=== PATIENT | female | born 1980 | race Caucasian/White ===

== ENCOUNTER 2022-04-09 12:14 | Inpatient (IN) ==
[2022-04-09] MEDS ORDERED: PROCHLORPERAZINE 1 ML IV ONE (13:05)
[2022-04-09] MEDS ORDERED: FAMOTIDINE 20MG IV PUSH 20 MG/5 ML SYR IV STA (13:05)
[2022-04-09] MEDS ORDERED: SODIUM CHLORIDE 0.9% 500 ML IV ONE (13:05)
--- NOTE | 2022-04-09 13:09 | Emergency Department Note ---
History of Present Illness General Chief complaint: Illness Stated complaint: CANNOT EAT SOLID FOODS, NAUSEA, STOMACH PAIN Time Seen by Provider: 04/09/22 12:48 Source: patient Mode of arrival: ambulatory Limitations: no limitations History of Present Illness Provider complaint: Nausea This is a 41-year-old female is currently being treated for breast cancer who complains of persistent nausea. Patient was recently hospitalized at [facility] due to pneumonia with subsequent sepsis. She states since that time she has had persistent nausea. She has been using ondansetron 8 mg twice daily at home without any improvement. She states she is able to swallow okay without pain or discomfort. She does not vomit. She states she has been trying to eat light foods such as yogurt, applesauce, and even try to drink supplements for additional calories and vitamins. She does have a prior history of GERD however was told to stop her GERD medication because it interacted with her chemo meds. She did complete her most recent cycle of chemotherapy the end of January. She states she is scheduled for surgery on February 20. She states that she has also previously had strictures need to be dilated by GI. She states both her family doctor and her oncologist are aware of her nausea. She did not contact her GI specialist. She has not yet had radiation. She states intermittently she will have some left upper quadrant pain, she does not currently have any. She denies any recent fevers or chills. Pt seen during a time of high acuity and national emergency pandemic while wearing PPE. Past Med/Surg History Social History Smoking Status: Never smoker Feels Safe at Home: Yes Review of Systems A total of 10 systems reviewed and were otherwise negative All systems reviewed & are unremarkable except as noted in HPI & below Physical Exam Vital Signs Vital Signs - 24 hr 04/09/22 12:18 04/09/22 14:30 04/09/22 14:31 Temperature 36.7 C Temperature Source Temporal Artery Scan Pulse Rate 134 H 108 H Pulse Rate [Finger] Pulse Rhythm [Finger] Pulse Strength [Finger] Respiratory Rate 20 17 Respiratory Effort / Characteristics Non-Labored Spontaneous Respiratory Depth Normal Respiratory Pattern Regular Blood Pressure 102/79 149/81 H Blood Pressure [Right Arm] Blood Pressure Mean 86 103 Blood Pressure Mean [Right Arm] Blood Pressure Position Sitting Pulse Oximetry 100 96 Oxygen Delivery Method Room Air Sepsis Recent Fever Within 48 Hours No Sepsis New/Unexplained Change in Mental Status No Sepsis Action Taken by Nursing No Action Required 04/09/22 15:33 04/09/22 17:07 04/09/22 18:16 Temperature Temperature Source Pulse Rate Pulse Rate [Finger] 122 H 120 H 122 H Pulse Rhythm [Finger] Pulse Strength [Finger] Respiratory Rate 20 18 18 Respiratory Effort / Characteristics Non-Labored Non-Labored Non-Labored Respiratory Depth Normal Normal Normal Respiratory Pattern Regular Blood Pressure Blood Pressure [Right Arm] 122/84 103/74 108/67 Blood Pressure Mean Blood Pressure Mean [Right Arm] 96 83 80 Blood Pressure Position Pulse Oximetry 97 97 98 Oxygen Delivery Method Room Air Room Air Sepsis Recent Fever Within 48 Hours Sepsis New/Unexplained Change in Mental Status Sepsis Action Taken by Nursing 04/09/22 20:00 Temperature Temperature Source Pulse Rate Pulse Rate [Finger] 84 Pulse Rhythm [Finger] Regular Pulse Strength [Finger] Normal Respiratory Rate 17 Respiratory Effort / Characteristics Non-Labored Respiratory Depth Normal Respiratory Pattern Regular Blood Pressure Blood Pressure [Right Arm] Blood Pressure Mean Blood Pressure Mean [Right Arm] Blood Pressure Position Pulse Oximetry 99 Oxygen Delivery Method Room Air Sepsis Recent Fever Within 48 Hours Sepsis New/Unexplained Change in Mental Status Sepsis Action Taken by Nursing GENERAL: alert, well appearing, well nourished, no distress, non-toxic EYE EXAM: normal conjunctiva, PERRL and EOM's grossly intact OROPHARYNX: no exudate, no erythema, lips, buccal mucosa, and tongue normal and mucous membranes are moist NECK: supple, no nuchal rigidity, no adenopathy, non-tender LUNGS: Clear to auscultation. Normal chest wall mechanics, no w/r/r HEART: no murmurs, S1 normal and S2 normal ABDOMEN: abdomen soft, non-tender, normo-active bowel sounds, no masses, no rebound or guarding. BACK: Back is symmetrical on inspection and there is no deformity, no midline tenderness, no CVA tenderness. SKIN: no rashes and no bruising UPPER EXTREMITIES: upper extremities are grossly normal. FROM, nml pulses b/l. LOWER EXTREMITIES: No pitting edema. FROM, nml pulses b/l. NEURO EXAM: Normal sensorium, cranial nerves II-XII grossly intact, normal speech, no gross weakness of arms, no gross weakness of legs. Gross sensation intact. Course Course 1619: Patient updated. States compazine did provide some relief. Discussed electrolytes. 1821: Patient still tachycardic. States nausea is slightly improved and she would like to try applesauce. She denies any pain or sense of fevers. We discussed differential diagnosis of her tachycardia. Administered Medications Discontinued Medications Enoxaparin Sodium (Enoxaparin Inj 120 Mg/0.8 Ml Syr) 120 mg SQ NOW ONE Stop: 04/09/22 21:01 Last Admin: 04/09/22 20:58 Dose: 120 mg Documented By: JEREMY Heparin Sodium (Porcine) (Heparin Sod (Porcine) 1000 Unit/Ml) 6,000 units IV NOW ONE Stop: 04/09/22 20:38 Last Admin: 04/09/22 20:43 Dose: Not Given Documented By: JEREMY Prochlorperazine (Compazine) 1 mls @ 1 mls/min IV ONE ONE Stop: 04/09/22 13:06 Last Admin: 04/09/22 14:38 Dose: 1 mls/min Documented By: CAREY Sodium Chloride (Nss) 500 mls @ 999 mls/hr IV .Q31M ONE Stop: 04/09/22 13:35 Last Infusion: 04/09/22 14:47 Dose: 0 mls/hr Documented By: Admin: 04/09/22 14:12 Dose: 999 mls/hr Documented By: CAREY Famotidine (Pepcid 20mg Iv Push) 20 mg in 5 mls @ 2.5 mls/min IV NOW STA Stop: 04/09/22 13:06 Last Admin: 04/09/22 14:38 Dose: 2.5 mls/min Documented By: CAREY Sodium Chloride (Nss 1000ml) 1,000 mls @ 999 mls/hr IV .Q1H1M ONE Stop: 04/09/22 16:39 Last Infusion: 04/09/22 17:00 Dose: 0 mls/hr Documented By: Admin: 04/09/22 15:57 Dose: 999 mls/hr Documented By: NEGIN Magnesium Sulfate/Dextrose (Magnesium Sulfate / D5w) 1 gm in 100 mls @ 100 mls/hr IV NOW STA Stop: 04/09/22 16:38 Last Infusion: 04/09/22 16:59 Dose: 0 mls/hr Documented By: Admin: 04/09/22 15:58 Dose: 100 mls/hr Documented By: NEGIN Sodium Chloride (Nss 1000ml) 1,000 mls @ 999 mls/hr IV .Q1H1M ONE Stop: 04/09/22 19:27 Last Infusion: 04/09/22 20:12 Dose: 0 mls/hr Documented By: OASola Admin: 04/09/22 19:10 Dose: 999 mls/hr Documented By: JEREMY Ioversol (Optiray 300 500ml) 112 ml IV ONCE ONE Stop: 04/09/22 19:52 Last Admin: 04/09/22 19:52 Dose: 50 ml Documented By: SANDRA Pantoprazole Sodium (Pantoprazole 40 Mg Tab) 40 mg PO NOW STA Stop: 04/09/22 20:24 Last Admin: 04/09/22 20:58 Dose: 40 mg Documented By: JEREMY Potassium Chloride (Potassium Chloride Crtab 20 Meq Tabcr) 40 meq PO NOW STA Stop: 04/09/22 15:40 Last Admin: 04/09/22 15:58 Dose: 40 meq Documented By: NEGIN Potassium Chloride (Potassium Chloride Crtab 20 Meq Tabcr) 40 meq PO NOW STA Stop: 04/09/22 20:53 Last Admin: 04/09/22 20:58 Dose: 40 meq Documented By: JEREMY Critical Care Time Critical Care Time: Yes Total Critical Care Time: 39 Critical care of 39 min performed to assess and manage high likelihood of life- threatening pulmonary embolism, involving labs and imaging performed with assessment to evaluate pulmonary embolism diagnosis with frequent reassessment. This time includes bedside time, treatment discussions with patien t/family/consultants, documentation time and excludes procedure time. Medical Decision Making Differential Diagnosis Differential: Gastroenteritis, Food Borne, Esophageal Perforation, , Electrolyte Abnormality, Dehydration, Intraabdominal Infection, UTI/Pyelonephritis, Bowel Obstruction, Biliary Pathology, amongst other pathology entertained. Medical Records Attestation: I reviewed the patient's medical records. Home Medications Current Medication List: was personally reviewed by me Laboratory Data Attestation: I reviewed the patient's lab results. Result diagrams: 04/09/22 14:42 04/09/22 14:42 Lab Results 04/09/22 04/09/22 04/09/22 Range/Units 14:42 14:42 14:42 WBC 5.59 (4.8-10.8) K/ul RBC 3.81 L (3.93-5.22) M/uL Hgb 11.7 L (12.0-16.0) g/dl Hct 34.6 (34.1-44.9) % MCV 90.8 (80.0-100.0) fL MCH 30.7 (25.0-34.0) pg MCHC 33.8 (32.0-36.0) g/dL RDW Std Deviation 44.0 (36.4-46.3) fL RDW Coeff of Phylicia 13.4 (11.5-14.5) % Plt Count 258 (130-400) K/uL MPV 9.4 (9.4-12.3) fL Immature Gran % (Auto) 0.4 % Neut % (Auto) 52.2 % Lymph % (Auto) 26.5 % [place] % (Auto) 14.3 % Eos % (Auto) 5.5 % Baso % (Auto) 1.1 % Neut # (Auto) 2.92 (1.4-6.5) K/uL Lymph # (Auto) 1.48 (1.2-3.4) K/uL [place] # (Auto) 0.80 (0.24-0.82) K/uL Eos # (Auto) 0.31 (0-0.50) K/uL Baso # (Auto) 0.06 (0-0.2) K/uL Immature Gran # (Auto) 0.02 (0.00-0.02) K/uL APTT (21.0-31.0) Seconds PTT Ratio Sodium 137 (136-145) mmol/L Potassium 2.8 L (3.5-5.1) mmol/L Chloride 102 (98-107) mmol/L Carbon Dioxide 23 (21-32) mmol/L Anion Gap 12 H (3-11) BUN 7 (6-23) mg/dl Creatinine 1.79 H (0.6-1.2) mg/dl Est Cr Clr Drug Dosing 52.7 ml/min Est GFR ( Amer) 40.7 ml/min Est GFR (Non-Af Amer) 35.1 ml/min BUN/Creatinine Ratio 3.9 L (10-20) Glucose 110 H (70-99(Fasting)) mg/dl Calcium 9.8 (8.5-10.1) mg/dl Magnesium 1.6 L (1.7-2.4) mg/dl Total Bilirubin 0.8 (0.2-1.0) mg/dl AST 103 H (13-39) U/L ALT 99 H (7-52) U/L Alkaline Phosphatase 65 (34-104) U/L Troponin I High Sens 28.5 H (0-14) pg/ml Total Protein 7.5 (6.0-8.3) gm/dl Albumin 4.2 (3.4-5.0) gm/dl Globulin 3.3 (2.5-4.0) gm/dl Albumin/Globulin Ratio 1.3 (0.9-2) Lipase 38 (11-82) U/L TSH 0.435 (0.300-4.500) uIu/ml SARS-CoV-2, RNA, NAAT (NEGATIVE) 04/09/22 04/09/22 Range/Units 20:53 21:00 WBC (4.8-10.8) K/ul RBC (3.93-5.22) M/uL Hgb (12.0-16.0) g/dl Hct (34.1-44.9) % MCV (80.0-100.0) fL MCH (25.0-34.0) pg MCHC (32.0-36.0) g/dL RDW Std Deviation (36.4-46.3) fL RDW Coeff of Phylicia (11.5-14.5) % Plt Count (130-400) K/uL MPV (9.4-12.3) fL Immature Gran % (Auto) % Neut % (Auto) % Lymph % (Auto) % [place] % (Auto) % Eos % (Auto) % Baso % (Auto) % Neut # (Auto) (1.4-6.5) K/uL Lymph # (Auto) (1.2-3.4) K/uL [place] # (Auto) (0.24-0.82) K/uL Eos # (Auto) (0-0.50) K/uL Baso # (Auto) (0-0.2) K/uL Immature Gran # (Auto) (0.00-0.02) K/uL APTT 30.6 (21.0-31.0) Seconds PTT Ratio 1.1 Sodium (136-145) mmol/L Potassium (3.5-5.1) mmol/L Chloride (98-107) mmol/L Carbon Dioxide (21-32) mmol/L Anion Gap (3-11) BUN (6-23) mg/dl Creatinine (0.6-1.2) mg/dl Est Cr Clr Drug Dosing ml/min Est GFR ( Amer) ml/min Est GFR (Non-Af Amer) ml/min BUN/Creatinine Ratio (10-20) Glucose (70-99(Fasting)) mg/dl Calcium (8.5-10.1) mg/dl Magnesium (1.7-2.4) mg/dl Total Bilirubin (0.2-1.0) mg/dl AST (13-39) U/L ALT (7-52) U/L Alkaline Phosphatase (34-104) U/L Troponin I High Sens (0-14) pg/ml Total Protein (6.0-8.3) gm/dl Albumin (3.4-5.0) gm/dl Globulin (2.5-4.0) gm/dl Albumin/Globulin Ratio (0.9-2) Lipase (11-82) U/L TSH (0.300-4.500) uIu/ml SARS-CoV-2, RNA, NAAT NEGATIVE (NEGATIVE) Imaging Data Radiologist's Impression: Abdomen/Pelvis CT 04/09/22 18:27 CT angio chest PE protocol, CT abd pelvis IV con only CT DOSE: 2383.16 mGy.cm HISTORY: 41 years-old Female with PE. Acute shortness breath with chest and abdominal pain. History of breast cancer. TECHNIQUE: Multiple CTA images of the chest were obtained after the intravenous administration of 112 ml Optiray. Coronal and sagittal MIPS were obtained from the axial data set and were submitted for review. CT abdomen and pelvis with IV contrast only was also obtained. All measurements were obtained according to NASCET criteria. A dose lowering technique was utilized adhering to the principles of ALARA. COMPARISON: None. FINDINGS: CTA: Left IJ [id number]-m-[id number] catheter distal tip terminates in the mid SVC. The heart is upper limits of normal in size. No pericardial effusion. Normal thoracic aorta without aneurysm or dissection. Suboptimal opacification of the pulmonary arterial tree. The lobar, segmental and subsegmental branches are well visualized secondary to contrast bolus timing. Likely acute pulmonary embolus noted within the segmental and subsegmental branches of the posterior basal right lower lobe, image 155. No central pulmonary emboli are identified. No evidence of right heart strain. CT CHEST: Unremarkable thyroid. No lymphadenopathy identified. No pneumothorax, pleural effusion, airspace consolidation or overt pulmonary edema. There is mild nonspecific bilateral bronchial wall thickening. There is a subpleural nodule within the right lower lobe, image 161 measuring 10 mm. The left lung is generally clear. Respiratory motion artifact in its evaluation of the lungs. The central airways are patent. Biopsied 2.4 x 2.2 cm mass within the medial right breast. Soft tissues are otherwise unremarkable. No acute fracture or destructive bone lesion identified. CT ABDOMEN/PELVIS: No pneumatosis or pneumoperitoneum. Hepatosplenomegaly with hepatic steatosis. The spleen measures approximately 15 cm in length. Unremarkable pancreas and glands. Cholecystectomy. No hepatic lesions are identified. Patency of the hepatic and portal veins. Probable cyst of the posterior inferior pole left kidney, 1.1 cm. Mild nonspec ific bilateral perinephric stranding. Moderate bladder wall thickening with partial distention. Unremarkable uterus and adnexa. Aorta and IVC are unremarkable. No lymphadenopathy identified. Mild nonspecific distal esophageal wall thickening. No bowel obstruction or bowel wall thickening. The visualized appendix is unremarkable. Tiny fat filled periumbilical hernia. No acute fracture or destructive bone lesion identified. IMPRESSION: 1. Segmental and subsegmental pulmonary emboli of the right lower lobe. 2. 2.4 x 2.2 cm biopsied mass within the medial right breast compatible with the patient's known malignancy. 3. Indeterminate 10 mm subpleural solid nodule of the right lower lobe. Follow- up is needed. 4. Hepatosplenomegaly with hepatic steatosis. 5. No bowel obstruction or bowel wall thickening. 6. Additional findings as above. ACT 112: Negative or not required by law. The above report was generated using voice recognition software. It may contain grammatical, syntax or spelling errors. Electronically signed by: Trevor Silva M.D. 04/09/2022 8:09 PM Chest CTA 04/09/22 18:27 CT angio chest PE protocol, CT abd pelvis IV con only CT DOSE: 2383.16 mGy.cm HISTORY: 41 years-old Female with PE. Acute shortness breath with chest and abdominal pain. History of breast cancer. TECHNIQUE: Multiple CTA images of the chest were obtained after the intravenous administration of 112 ml Optiray. Coronal and sagittal MIPS were obtained from the axial data set and were submitted for review. CT abdomen and pelvis with IV contrast only was also obtained. All measurements were obtained according to NASCET criteria. A dose lowering technique was utilized adhering to the principles of ALARA. COMPARISON: None. FINDINGS: CTA: Left IJ [id number] catheter distal tip terminates in the mid SVC. The heart is upper limits of normal in size. No pericardial effusion. Normal thoracic aorta without aneurysm or dissection. Suboptimal opacification of the pulmonary arterial tree. The lobar, segmental and subsegmental branches are well visualized secondary to contrast bolus timing. Likely acute pulmonary embolus noted within the segmental and subsegmental branches of the posterior basal right lower lobe, image 155. No central pulmonary emboli are identified. No evidence of right heart strain. CT CHEST: Unremarkable thyroid. No lymphadenopathy identified. No pneumothorax, pleural effusion, airspace consolidation or overt pulmonary edema. There is mild nonspecific bilateral bronchial wall thickening. There is a subpleural nodule within the right lower lobe, image 161 measuring 10 mm. The left lung is generally clear. Respiratory motion artifact in its evaluation of the lungs. The central airways are patent. Biopsied 2.4 x 2.2 cm mass within the medial right breast. Soft tissues are otherwise unremarkable. No acute fracture or destructive bone lesion identified. CT ABDOMEN/PELVIS: No pneumatosis or pneumoperitoneum. Hepatosplenomegaly with hepatic steatosis. The spleen measures approximately 15 cm in length. Unremarkable pancreas and glands. Cholecystectomy. No hepatic lesions are identified. Patency of the hepatic and portal veins. Probable cyst of the posterior inferior pole left kidney, 1.1 cm. Mild nonspecif ic bilateral perinephric stranding. Moderate bladder wall thickening with partial distention. Unremarkable uterus and adnexa. Aorta and IVC are unremarkable. No lymphadenopathy identified. Mild nonspecific distal esophageal wall thickening. No bowel obstruction or bowel wall thickening. The visualized appendix is unremarkable. Tiny fat filled periumbilical hernia. No acute fracture or destructive bone lesion identified. IMPRESSION: 1. Segmental and subsegmental pulmonary emboli of the right lower lobe. 2. 2.4 x 2.2 cm biopsied mass within the medial right breast compatible with the patient's known malignancy. 3. Indeterminate 10 mm subpleural solid nodule of the right lower lobe. Follow- up is needed. 4. Hepatosplenomegaly with hepatic steatosis. 5. No bowel obstruction or bowel wall thickening. 6. Additional findings as above. ACT 112: Negative or not required by law. The above report was generated using voice recognition software. It may contain grammatical, syntax or spelling errors. Electronically signed by: Trevor Silva M.D. 04/09/2022 8:09 PM ECG Data Attestation: I personally reviewed and interpreted this ECG as follows: Indication: + nausea Rate (beats per minute): 114 Rhythm: + sinus tachycardia ECG Intervals/blocks: + Normal QRS and + Normal QT ECG [place]: + Normal ECG ST segments: + Nonspecific ST abnormalities MDM Narrative An order was placed for continuous cardiac monitoring. The monitor shows a rate of _113_ with _sinsus tachycardia__ rhythm. This is a 41-year-old female presents emerged department due to concern for persistent nausea despite using ondansetron at home per her oncologist recommendation. Patient does have history of breast cancer and finished chemotherapy the end of January, is scheduled for surgery on April 22. Patient complains of persistent nausea. Labs drawn and sent, and after discussion at bedside we opted to try Compazine with the patient. She was given IV fluid rehydration due to concern for accompanying dehydration due to decreased oral intake and patient was tachycardic. Patient denied chest pain or shortness of breath. Denied fevers or abdominal pain. Patient found to have hypokalemia and hypomagnesemia, likely second to decreased oral intake. No evidence of SAM, mild elevation of transaminases noted, mild elevation of troponin. Patient's electrolytes were repleted and she continued to be hydrated however continued to feel tachycardic. She stated the nausea was improved and she was tolerating sips by mouth. Due to concern for persistent tachycardia, I discussed with her additional imaging. CT of the chest, abdomen and pelvis was also performed and revealed segmental and subsegmental PEs. Patient high risk for complication due to history of known malignancy and persistent tachycardia. No evidence for right heart strain on CT although patient did have a mildly elevated troponin and labs. Case discussed with hospitalist for additional evaluation and management. Patient started on weight-based Lovenox. All results were discussed with patient and family at bedside. She verbalized understanding was in agreement with plan. Impression & Plan Tachycardia, Pulmonary embolism, Nausea, Esophagitis, Hypokalemia, Breast cancer, Hypomagnesemia Discharge Plan Visit Data Chief Complaint: Illness Stated Complaint: CANNOT EAT SOLID FOODS, NAUSEA, STOMACH PAIN ED Provider: Shyanne Keller Discharge Problem: Tachycardia, Pulmonary embolism, Nausea, Esophagitis, Hypokalemia, Breast cancer, Hypomagnesemia Forms Stand Alone Forms: [facility] Referrals Referrals: PCP,NO [Physician] -
[2022-04-09 15:14] LABS: Albumin Globulin Ratio 1.3 (0.9-2); Albumin Level 4.2 gm/dl (3.4-5.0); BUN Creatinine Ratio 3.9 (10-20); Basophils # (auto) 0.06 K/uL (0-0.2); Basophils % (auto) 1.1 %; Bilirubin,Total 0.8 mg/dl (0.2-1.0); Calcium 9.8 mg/dl (8.5-10.1); Creatinine Clr Calc Pharmacy 52.7 ml/min; Eosinophils # (auto) 0.31 K/uL (0-0.50); Eosinophils % (auto) 5.5 %; Est GFR (African American) 40.7 ml/min; Est GFR (Non-African American) 35.1 ml/min; Globulin 3.3 gm/dl (2.5-4.0); Hematocrit (blood only) 34.6 % (34.1-44.9); Hemoglobin 11.7 g/dl (12.0-16.0); Immature Granulocytes # (auto) 0.02 K/uL (0.00-0.02); Immature Granulocytes % (auto) 0.4 %; Lymphocytes # (auto) 1.48 K/uL (1.2-3.4); Lymphocytes % (auto) 26.5 %; Magnesium 1.6 mg/dl (1.7-2.4); Mean Corpuscular Hemoglobin 30.7 pg (25.0-34.0); Mean Corpuscular Hgb Conc 33.8 g/dL (32.0-36.0); Mean Corpuscular Volume 90.8 fL (80.0-100.0); Mean Platelet Volume 9.4 fL (9.4-12.3); Monocytes % (auto) 14.3 %; Neutrophils # (auto) 2.92 K/uL (1.4-6.5); Neutrophils % (auto) 52.2 %; Platelet Count 258 K/uL (130-400); Potassium 2.8 mmol/L (3.5-5.1); RDW Coefficient of Variation 13.4 % (11.5-14.5); Red Blood Count 3.81 M/uL (3.93-5.22); Total Protein 7.5 gm/dl (6.0-8.3); White Blood Count 5.59 K/ul (4.8-10.8)
[2022-04-09 15:17] LABS: Troponin I High Sensitivity 28.5 pg/ml (0-14)
[2022-04-09] MEDS ORDERED: SODIUM CHLORIDE 0.9% 1000ML 1,000 ML IV ONE ×2 (15:39→18:27)
[2022-04-09] MEDS ORDERED: MAGNESIUM SULFATE / D5W 1 GM/100 ML BAG IV STA (15:39)
[2022-04-09] MEDS ORDERED: POTASSIUM CHLORIDE CRTAB 20 MEQ TABCR PO STA ×2 (15:39→20:52)
--- NOTE | 2022-04-09 16:09 | Electrocardiogram Report ---
Test Reason : Blood Pressure : / mmHG Vent. Rate : 114 BPM Atrial Rate : 114 BPM P-R Int : 142 ms QRS Dur : 084 ms QT Int : 352 ms P-R-T Axes : 064 056 054 degrees QTc Int : 485 ms Sinus tachycardia Left atrial enlargement Nonspecific T wave abnormality Anterior leads Abnormal ECG No previous ECGs available Confirmed by Damien Hall ([id number]) on 04/09/2022 4:09:16 PM Referred By: REFERRED SELF Confirmed By:Damien Hall
[2022-04-09] MEDS ORDERED: OPTIRAY 300 500mL IV ONE (19:51)
--- NOTE | 2022-04-09 20:11 | CT Scan Report ---
CT angio chest PE protocol, CT abd pelvis IV con only CT DOSE: 2383.16 mGy.cm HISTORY: 41 years-old Female with PE. Acute shortness breath with chest and abdominal pain. History of breast cancer. TECHNIQUE: Multiple CTA images of the chest were obtained after the intravenous administration of 112 ml Optiray. Coronal and sagittal MIPS were obtained from the axial data set and were submitted for review. CT abdomen and pelvis with IV contrast only was also obtained. All measurements were obtained according to NASCET criteria. A dose lowering technique was utilized adhering to the principles of A TAMIKO. COMPARISON: None. FINDINGS: CTA: Left IJ Klczbl-a-[id number] catheter distal tip terminates in the mid SVC. The heart is upper limits of nor mal in size. No pericardial effusion. Normal thoracic aorta without aneurysm or dissection. Suboptima l opacification of the pulmonary arterial tree. The lobar, segmental and subsegmental branches are we ll visualized secondary to contrast bolus timing. Likely acute pulmonary embolus noted within the seg mental and subsegmental branches of the posterior basal right lower lobe, image 155. No central pulmo nary emboli are identified. No evidence of right heart strain. CT CHEST: Unremarkable thyroid. No lymphadenopathy identified. No pneumothorax, pleural effusion, airspace cons olidation or overt pulmonary edema. There is mild nonspecific bilateral bronchial wall thickening. Th ere is a subpleural nodule within the right lower lobe, image 161 measuring 10 mm. The left lung is g enerally clear. Respiratory motion artifact in its evaluation of the lungs. The central airways are p atent. Biopsied 2.4 x 2.2 cm mass within the medial right breast. Soft tissues are otherwise unremark able. No acute fracture or destructive bone lesion identified. CT ABDOMEN/PELVIS: No pneumatosis or pneumoperitoneum. Hepatosplenomegaly with hepatic steatosis. The spleen measures ap proximately 15 cm in length. Unremarkable pancreas and glands. Cholecystectomy. No hepatic lesions ar e identified. Patency of the hepatic and portal veins. Probable cyst of the posterior inferior pole left kidney, 1.1 cm. Mild nonspecific bilateral perineph joana stranding. Moderate bladder wall thickening with partial distention. Unremarkable uterus and adne xa. Aorta and IVC are unremarkable. No lymphadenopathy identified. Mild nonspecific distal esophageal wall thickening. No bowel obstruction or bowel wall thickening. The visualized appendix is unremarka ble. Tiny fat filled periumbilical hernia. No acute fracture or destructive bone lesion identified. IMPRESSION: 1. Segmental and subsegmental pulmonary emboli of the right lower lobe. 2. 2.4 x 2.2 cm biopsied mass within the medial right breast compatible with the patient's known lidya gnancy. 3. Indeterminate 10 mm subpleural solid nodule of the right lower lobe. Follow-up is needed. 4. Hepatosplenomegaly with hepatic steatosis. 5. No bowel obstruction or bowel wall thickening. 6. Additional findings as above. ACT 112: Negative or not required by law. The above report was generated using voice recognition software. It may contain grammatical, syntax o r spelling errors. Electronically signed by: Trevor Silva M.D. 04/09/2022 8:09 PM
[2022-04-09] MEDS ORDERED: Heparin IV Adult Wt-Based Standard WITH Bolus Protocol IV STA (20:22)
[2022-04-09] MEDS ORDERED: PANTOprazole 40 MG TAB PO STA (20:23)
[2022-04-09] MEDS ORDERED: HEPARIN SOD (PORCINE) 1000 UNIT/ML IV ONE ×2 (20:37)
[2022-04-09] MEDS ORDERED: ENOXAPARIN 1 MG/KG SC ONE (20:41)
[2022-04-09] MEDS ORDERED: HEPARIN SODIUM/DEXTROSE 25,000 UNITS/500 ML BAG IV SCH (20:45)
[2022-04-09] MEDS ORDERED: ENOXAPARIN INJ 120 MG/0.8 ML SYR SQ ONE (21:00)
[2022-04-09 21:26] LABS: Partial Thromboplastin Ratio 1.1; Partial Thromboplastin Time 30.6 Seconds (21.0-31.0)
--- NOTE | 2022-04-09 21:42 | History & Physical Report ---
Date of Service April 09, 2022 Assessment & Plan (1) Pulmonary embolism: Plan: hx right breast cancer status post neoadjuvant chemotherapy/immunotherapy Initial occurrence Rule out LE DVT as source. 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 intake ? Secondary to possible gastroparesis past tobacco abuse Medical telemetry Weight-based Lovenox Request AM provider to contact patient's oncologist Dr. Nolan Gonzalez of the [facility] (contact #[phone]) for recommendations regarding home anticoagulation agent in light of patient's cancer history. LE venous Dopplers rule out DVT Replace electrolytes Outpatient GI consult for possible gastroparesis DVT prophylaxis. Lovenox Full code Text document was generated using [employer] voice recognition software. It may contain grammatical or spelling errors. Kindly contact undersigned for clarification of any documentation item in question. History of Present Illness Chief Complaint: Worsening nausea, vomiting Primary Care Provider: Rodríguez Hubbard, History obtained from patient, family, and records. Medical history significant for right breast cancer status post neoadjuvant chemotherapy/immunotherapy, pituitary insufficiency as per patient, hypothyroidism, chronic anemia (baseline hemoglobin of 11), CRI (baseline creatinine of 2 as per patient), past tobacco abuse. Patient diagnosed to have right breast cancer July 2021. Neoadjuvant chemotherapy/immunotherapy initiated September 2021. Last dose administered December 2021. Surgery contemplated next month. 2 months ago, patient noted nausea symptoms without unusual abdominal pain. Involuntary 20 pound weight loss the last couple of months. Patient prescribed antiemetics by outpatient providers. Patient admitted at [facility] last month for sepsis, renal failure necessitating temporary dialysis. At home, patient still with persistent nausea symptoms without unusual abdominal pain. No bowel movement. No chest pain, no unusual shortness of breath. No unusual leg swelling. Patient brought to the ER by for worsening symptoms. Weight-based Lovenox administered at the ER for pulmonary embolism. Medical History as above Surgical History : section, a port placement, cholecystectomy Family History : Breast cancer Personal/Social history : Past tobacco abuse, occasional EtOH intake, healthcare schedule coordinator Allergies Allergy/AdvReac Type Severity Reaction Status Date / Time carboplatin Allergy Severe Difficulty Verified 04/10/22 00:03 Breathing cefaclor [From Ceclor] Allergy Hives Verified 04/10/22 00:03 -Platin Family Allergy Severe Difficulty Uncoded 04/10/22 00:04 Breathing Home Medications Medication Instructions Recorded Confirmed Type hydrocortisone 10 mg tablet 10 mg PO UD 04/10/22 04/10/22 History levothyroxine 25 mcg tablet 50 mcg PO DAILY 04/10/22 04/10/22 History metoclopramide HCl 10 mg tablet 10 mg PO TIDWMEAL 04/10/22 04/10/22 History ondansetron HCl 4 mg tablet mg 04/10/22 History ondansetron HCl 8 mg tablet 8 mg PO BIDWMEAL 04/10/22 04/10/22 History tramadol 50 mg tablet 50 mg PO Q4H PRN Pain 04/10/22 04/10/22 History Past Med/Surg History Social History Smoking Status: Former smoker Cigarettes Per Day: 0.5 pks/day; Smoking End Date: December-January 2022; Second Hand Exposure: No; Tobacco Cessation Education Requested by Patient: No Hx Alcohol Use: No Hx Substance Use: No Preferred Language: Occitan Communication Ability: Effective Charge Operator Required: No Beliefs That Will Affect Care: None marital status: Current Living Situation: Significant Other Current Living Situation Comment: Live with significant other and 3 daughters How many Children do You have: 3 Other Information That Helps Us Care for You: No Feels Safe at Home: Yes Safety Concerns: Feels Safe At This Time Assistive Devices: None Review of Systems Review of Systems: As per HPI, all other systems reviewed and negative Physical Exam Physical Exam: GENERAL: Comfortable, morbidly obese, pleasant, no respiratory distress SKIN: Pallor, warm HEENT: Pale palpebral conjunctivae, no ptosis, dry buccal mucosa NECK : Supple, short neck, no tenderness CHEST : CTA, no tenderness HEART : Tachycardic, no obvious murmurs ABDOMEN: Some distention, nontender EXTREMITIES : Minimal LE swelling, no LE tenderness, no other conspicuous deformities noted NEUROLOGIC : Coherent, no facial asymmetry, no other gross focality Results & Data Results & Data ([facility]) Vital Signs (Past 12 Hours) Vital Signs Temp Pulse Pulse Resp BP BP Pulse Ox 04/09/22 20:00 84 17 99 04/09/22 18:16 122 H 18 108/67 98 04/09/22 17:07 120 H 18 103/74 97 04/09/22 15:33 122 H 20 122/84 97 04/09/22 14:31 108 H 17 96 04/09/22 14:30 149/81 H 04/09/22 12:18 36.7 C 134 H 20 102/79 100 O2 Del Method 04/09/22 20:00 Room Air 04/09/22 18:16 Room Air 04/09/22 17:07 Room Air 04/09/22 15:33 04/09/22 14:31 04/09/22 14:30 04/09/22 12:18 Room Air Laboratory Results Laboratory Results WBC 5.59 K/ul (4.8-10.8) 04/09/22 14:42 RBC 3.81 M/uL (3.93-5.22) L 04/09/22 14:42 Hgb 11.7 g/dl (12.0-16.0) L 04/09/22 14:42 Hct 34.6 % (34.1-44.9) 04/09/22 14:42 MCV 90.8 fL (80.0-100.0) 04/09/22 14:42 MCH 30.7 pg (25.0-34.0) 04/09/22 14:42 MCHC 33.8 g/dL (32.0-36.0) 04/09/22 14:42 RDW Std Deviation 44.0 fL (36.4-46.3) 04/09/22 14:42 RDW Coeff of Phylicia 13.4 % (11.5-14.5) 04/09/22 14:42 Plt Count 258 K/uL (130-400) 04/09/22 14:42 MPV 9.4 fL (9.4-12.3) 04/09/22 14:42 Immature Gran % (Auto) 0.4 % 04/09/22 14:42 Neut % (Auto) 52.2 % 04/09/22 14:42 Lymph % (Auto) 26.5 % 04/09/22 14:42 Chester % (Auto) 14.3 % 04/09/22 14:42 Eos % (Auto) 5.5 % 04/09/22 14:42 Baso % (Auto) 1.1 % 04/09/22 14:42 Neut # (Auto) 2.92 K/uL (1.4-6.5) 04/09/22 14:42 Lymph # (Auto) 1.48 K/uL (1.2-3.4) 04/09/22 14:42 Chester # (Auto) 0.80 K/uL (0.24-0.82) 04/09/22 14:42 Eos # (Auto) 0.31 K/uL (0-0.50) 04/09/22 14:42 Baso # (Auto) 0.06 K/uL (0-0.2) 04/09/22 14:42 Immature Gran # (Auto) 0.02 K/uL (0.00-0.02) 04/09/22 14:42 APTT 30.6 Seconds (21.0-31.0) 04/09/22 20:53 PTT Ratio 1.1 04/09/22 20:53 Sodium 137 mmol/L (136-145) 04/09/22 14:42 Potassium 2.8 mmol/L (3.5-5.1) L 04/09/22 14:42 Chloride 102 mmol/L (98-107) 04/09/22 14:42 Carbon Dioxide 23 mmol/L (21-32) 04/09/22 14:42 Anion Gap 12 (3-11) H 04/09/22 14:42 BUN 7 mg/dl (6-23) 04/09/22 14:42 Creatinine 1.79 mg/dl (0.6-1.2) H 04/09/22 14:42 Est Cr Clr Drug Dosing 52.7 ml/min 04/09/22 14:42 Est GFR ( Amer) 40.7 ml/min 04/09/22 14:42 Est GFR (Non-Af Amer) 35.1 ml/min 04/09/22 14:42 BUN/Creatinine Ratio 3.9 (10-20) L 04/09/22 14:42 Glucose 110 mg/dl (70-99(Fasting)) H 04/09/22 14:42 Calcium 9.8 mg/dl (8.5-10.1) 04/09/22 14:42 Magnesium 1.6 mg/dl (1.7-2.4) L 04/09/22 14:42 Total Bilirubin 0.8 mg/dl (0.2-1.0) 04/09/22 14:42 AST 103 U/L (13-39) H 04/09/22 14:42 ALT 99 U/L (7-52) H 04/09/22 14:42 Alkaline Phosphatase 65 U/L (34-104) 04/09/22 14:42 Troponin I High Sens 28.5 pg/ml (0-14) H 04/09/22 14:42 Total Protein 7.5 gm/dl (6.0-8.3) 04/09/22 14:42 Albumin 4.2 gm/dl (3.4-5.0) 04/09/22 14:42 Globulin 3.3 gm/dl (2.5-4.0) 04/09/22 14:42 Albumin/Globulin Ratio 1.3 (0.9-2) 04/09/22 14:42 Lipase 38 U/L (11-82) 04/09/22 14:42 TSH 0.435 uIu/ml (0.300-4.500) 04/09/22 14:42 SARS-CoV-2, RNA, NAAT NEGATIVE (NEGATIVE) 04/09/22 21:00 Impressions Abdomen/Pelvis CT 04/09/22 18:27 CT angio chest PE protocol, CT abd pelvis IV con only CT DOSE: 2383.16 mGy.cm HISTORY: 41 years-old Female with PE. Acute shortness breath with chest and abdominal pain. History of breast cancer. TECHNIQUE: Multiple CTA images of the chest were obtained after the intravenous administration of 112 ml Optiray. Coronal and sagittal MIPS were obtained from the axial data set and were submitted for review. CT abdomen and pelvis with IV contrast only was also obtained. All measurements were obtained according to NASCET criteria. A dose lowering technique was utilized adhering to the principles of ALARA. COMPARISON: None. FINDINGS: CTA: Left IJ Xwetkk-b-Usmn catheter distal tip terminates in the mid SVC. The heart is upper limits of normal in size. No pericardial effusion. Normal thoracic aorta without aneurysm or dissection. Suboptimal opacification of the pulmonary arterial tree. The lobar, segmental and subsegmental branches are well visualized secondary to contrast bolus timing. Likely acute pulmonary embolus noted within the segmental and subsegmental branches of the posterior basal right lower lobe, image 155. No central pulmonary emboli are identified. No evidence of right heart strain. CT CHEST: Unremarkable thyroid. No lymphadenopathy identified. No pneumothorax, pleural effusion, airspace consolidation or overt pulmonary edema. There is mild nonspecific bilateral bronchial wall thickening. There is a subpleural nodule within the right lower lobe, image 161 measuring 10 mm. The left lung is generally clear. Respiratory motion artifact in its evaluation of the lungs. The central airways are patent. Biopsied 2.4 x 2.2 cm mass within the medial right breast. Soft tissues are otherwise unremarkable. No acute fracture or destructive bone lesion identified. CT ABDOMEN/PELVIS: No pneumatosis or pneumoperitoneum. Hepatosplenomegaly with hepatic steatosis. The spleen measures approximately 15 cm in length. Unremarkable pancreas and glands. Cholecystectomy. No hepatic lesions are identified. Patency of the hepatic and portal veins. Probable cyst of the posterior inferior pole left kidney, 1.1 cm. Mild nonspecific bilateral perinephric stranding. Moderate bladder wall thickening with partial distention. Unremarkable uterus and adnexa. Aorta and IVC are unremarkable. No lymphadenopathy identified. Mild nonspecific distal esophageal wall thickening. No bowel obstruction or bowel wall thickening. The visualized appendix is unremarkable. Tiny fat filled periumbilical hernia. No acute fracture or destructive bone lesion identified. IMPRESSION: 1. Segmental and subsegmental pulmonary emboli of the right lower lobe. 2. 2.4 x 2.2 cm biopsied mass within the medial right breast compatible with the patient's known malignancy. 3. Indeterminate 10 mm subpleural solid nodule of the right lower lobe. Follow- up is needed. 4. Hepatosplenomegaly with hepatic steatosis. 5. No bowel obstruction or bowel wall thickening. 6. Additional findings as above. ACT 112: Negative or not required by law. The above report was generated using voice recognition software. It may contain grammatical, syntax or spelling errors. Electronically signed by: Trevor Sivla M.D. 04/09/2022 8:09 PM Chest CTA 04/09/22 18:27 CT angio chest PE protocol, CT abd pelvis IV con only CT DOSE: 2383.16 mGy.cm HISTORY: 41 years-old Female with PE. Acute shortness breath with chest and abdominal pain. History of breast cancer. TECHNIQUE: Multiple CTA images of the chest were obtained after the intravenous administration of 112 ml Optiray. Coronal and sagittal MIPS were obtained from the axial data set and were submitted for review. CT abdomen and pelvis with IV contrast only was also obtained. All measurements were obtained according to NASCET criteria. A dose lowering technique was utilized adhering to the principles of ALARA. COMPARISON: None. FINDINGS: CTA: Left IJ Grdlrd-o-Kehi catheter distal tip terminates in the mid SVC. The heart is upper limits of normal in size. No pericardial effusion. Normal thoracic aorta without aneurysm or dissection. Suboptimal opacification of the pulmonary arterial tree. The lobar, segmental and subsegmental branches are well visualized secondary to contrast bolus timing. Likely acute pulmonary embolus noted within the segmental and subsegmental branches of the posterior basal right lower lobe, image 155. No central pulmonary emboli are identified. No evidence of right heart strain. CT CHEST: Unremarkable thyroid. No lymphadenopathy identified. No pneumothorax, pleural effusion, airspace consolidation or overt pulmonary edema. There is mild nonspecific bilateral bronchial wall thickening. There is a subpleural nodule within the right lower lobe, image 161 measuring 10 mm. The left lung is generally clear. Respiratory motion artifact in its evaluation of the lungs. The central airways are patent. Biopsied 2.4 x 2.2 cm mass within the medial right breast. Soft tissues are otherwise unremarkable. No acute fracture or destructive bone lesion identified. CT ABDOMEN/PELVIS: No pneumatosis or pneumoperitoneum. Hepatosplenomegaly with hepatic steatosis. The spleen measures approximately 15 cm in length. Unremarkable pancreas and glands. Cholecystectomy. No hepatic lesions are identified. Patency of the hepatic and portal veins. Probable cyst of the posterior inferior pole left kidney, 1.1 cm. Mild nonspecific bilateral perinephric stranding. Moderate bladder wall thickening with partial distention. Unremarkable uterus and adnexa. Aorta and IVC are unremarkable. No lymphadenopathy identified. Mild nonspecific distal esophageal wall thickening. No bowel obstruction or bowel wall thickening. The visualized appendix is unremarkable. Tiny fat filled periumbilical hernia. No acute fracture or destructive bone lesion identified. IMPRESSION: 1. Segmental and subsegmental pulmonary emboli of the right lower lobe. 2. 2.4 x 2.2 cm biopsied mass within the medial right breast compatible with the patient's known malignancy. 3. Indeterminate 10 mm subpleural solid nodule of the right lower lobe. Follow- up is needed. 4. Hepatosplenomegaly with hepatic steatosis. 5. No bowel obstruction or bowel wall thickening. 6. Additional findings as above. ACT 112: Negative or not required by law. The above report was generated using voice recognition software. It may contain grammatical, syntax or spelling errors. Electronically signed by: Trevor Silva M.D. 04/09/2022 8:09 PM Diagnostic Findings EKG as per my interpretation :Rate 115, sinus tachycardia, normal axis, T wave abnormalities septal leads
[2022-04-09] MEDS ORDERED: traMADol HCL 50 MG TABLET PO PRN (23:11)
[2022-04-09] MEDS ORDERED: PROMETHAZINE HCL 12.5 MG in SODIUM CHLORIDE 0.9% 50 ML IV PRN (23:11)
[2022-04-09] MEDS ORDERED: ACETAMINOPHEN 325 MG TAB PO PRN (23:11)
[2022-04-09] MEDS ORDERED: Patient's ALLERGY Info needs ENTERED STA (23:16)
[2022-04-10] MEDS ORDERED: MAGNESIUM SULFATE / D5W 1 GM/100 ML BAG IV ONE (00:52)
[2022-04-10] MEDS ORDERED: POTASSIUM CHLORIDE CRTAB 20 MEQ TABCR PO STA (00:52)
[2022-04-10] MEDS ORDERED: LACTATED RINGER'S 1,000 ML IV ONE (00:53)
[2022-04-10] MEDS: LEVOTHYROXINE SODIUM 50 MCG TABLET PO SCH (05:30)
[2022-04-10 06:42] LABS: Basophils # (auto) 0.06 K/uL (0-0.2); Basophils % (auto) 1.2 %; Eosinophils # (auto) 0.24 K/uL (0-0.50); Eosinophils % (auto) 4.9 %; Hematocrit (blood only) 32.6 % (34.1-44.9); Hemoglobin 10.8 g/dl (12.0-16.0); Immature Granulocytes # (auto) 0.01 K/uL (0.00-0.02); Immature Granulocytes % (auto) 0.2 %; Lymphocytes % (auto) 30.6 %; Mean Corpuscular Hemoglobin 30.5 pg (25.0-34.0); Mean Corpuscular Hgb Conc 33.1 g/dL (32.0-36.0); Mean Corpuscular Volume 92.1 fL (80.0-100.0); Mean Platelet Volume 9.3 fL (9.4-12.3); Monocytes # (auto) 0.74 K/uL (0.24-0.82); Monocytes % (auto) 15.1 %; Neutrophils # (auto) 2.35 K/uL (1.4-6.5); Platelet Count 229 K/uL (130-400); RDW Coefficient of Variation 13.4 % (11.5-14.5); RDW Standard Deviation 44.9 fL (36.4-46.3); Red Blood Count 3.54 M/uL (3.93-5.22)
[2022-04-10 07:03] LABS: BUN Creatinine Ratio 3.2 (10-20); Calcium 9.3 mg/dl (8.5-10.1); Creatinine Clr Calc Pharmacy 61.4 ml/min; Est GFR (Non-African American) 41.4 ml/min; Magnesium 2.3 mg/dl (1.7-2.4); Potassium 3.9 mmol/L (3.5-5.1)
--- NOTE | 2022-04-10 07:19 | Ultrasound Report ---
BILATERAL LOWER EXTREMITY VENOUS DOPPLER HISTORY: History of malignancy. Pulmonary emboli. Assess for DVT. COMPARISON STUDY: None. FINDINGS: There is normal compressibility, flow, and augmentation within the bilateral lower extremit y deep venous systems. IMPRESSION: No DVT within the right or left lower extremity. ACT 112: Negative or not required by law. Electronically signed by: rEik Yost M.D. 04/10/2022 7:18 AM
[2022-04-10] MEDS ORDERED: traMADol HCL 50 MG TABLET PO PRN (07:25)
[2022-04-10 07:35] LABS: Estimated Average Glucose 111 mg/dl; Hemoglobin A1C 5.5 % (4.5-5.6)
[2022-04-10] MEDS: ENOXAPARIN INJ 120 MG/0.8 ML SYR SQ SCH ×2 (08:46→20:07)
[2022-04-10] MEDS: METOCLOPRAMIDE HCL 10 MG TABLET PO SCH ×3 (08:46→16:35)
[2022-04-10] MEDS: HYDROCORTISONE 10 MG TAB PO SCH (08:46)
--- NOTE | 2022-04-10 15:19 | Hospitalist Progress Note ---
Date of Service April 10, 2022 Assessment & Plan (1) Pulmonary embolism: Plan: Acute Pulmonary Embolism Right lower lobe nodule H/O Right breast cancer H/O recent hospitalization --CTA: Segmental and subsegmental pulmonary emboli of the right lower lobe. 2.4 x 2.2 cm biopsied mass within the medial right breast compatible with the patient's known malignancy. Indeterminate 10 mm subpleural solid nodule of the right lower lobe. Hepatosplenomegaly with hepatic steatosis. No bowel obstruction or bowel wall thickening. --Venous Doppler:No DVT within the right or left lower extremity. --ECHO: EF 50 to 55%. Trace tricuspid regurgitation. Right ventricle is normal. Right ventricle systolic pressure is normal. --Discussed with Bia HARDING for Dr.Mark Gonzalez of the [facility] on 04/10/22: Suggests Eliquis for anticoagulation. 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 Normal cortisol levels Continue hydrocortisone Hypothyroidism Normal TSH Continue levothyroxine Chronic anemia Hb at baseline Monitor CKD II Cr at baseline Monitor renal function Hypokalemia Hypomagnesemia secondary Replace electrolytes as needed Past tobacco abuse As per records Morbid obesity BMI 47 Suspected gastroparesis Continue Reglan GI as outpatient Advance diet as tolerated DVT Px: Lovenox SQ Code Status Full code Admission and Anticipated Discharge Date Admission Date: April 09, 2022 Subjective Patient is seen and examined at bedside Nausea much better today States feeling tired Denies any dyspnea, palpitations, chest pain Discussed with patient's oncologist over the phone today Offers no other complaints Review of Systems Review of Systems: All systems reviewed & are unremarkable except as noted in Subjective Physical Exam Physical Exam: Physical Exam: Vitals signs as noted above General Appearance:Morbidly Obese, no apparent distress Head: normocephalic, Atraumatic Eyes: normal inspection, EOMI Neck: supple, Trachea midline Respiratory/Chest: Normal breath sounds, +Port, CTA, No accessory muscle use Cardiovascular: S1, S2, No murmur, +Tachycardia Abdomen/GI:Soft, Non tender, Bowel sounds present Extremities/Musculoskeletal:normal inspection, Trace edema Neurologic/Psych:AAOX3, grossly no focal neurological deficits Skin: normal color, warm Results & Data Results & Data ([facility]) Vital Signs (Past 12 Hours) Vital Signs Temp Pulse Pulse Resp BP Pulse Ox O2 Del Method 04/10/22 11:34 37.4 C 113 H 18 129/75 99 Room Air 04/10/22 08:00 36.9 C 104 H 18 126/79 100 Room Air 04/10/22 07:14 106 H 04/10/22 03:22 36.9 C 104 H 20 95/62 L 98 Room Air Laboratory Results Short CBC 04/10/22 Range/Units 05:48 WBC 4.90 (4.8-10.8) K/ul Hgb 10.8 L (12.0-16.0) g/dl Hct 32.6 L (34.1-44.9) % Plt Count 229 (130-400) K/uL BMP 04/10/22 05:48 Sodium 139 Potassium 3.9 D Chloride 109 H Carbon Dioxide 22 BUN 5 L Creatinine 1.56 H Glucose 89 Calcium 9.3
[2022-04-10] MEDS ORDERED: HYDROCORTISONE 10 MG TAB PO SCH (16:00)
[2022-04-11] MEDS: HEPARIN 100 UNIT/ML 5ML FLUSH FLUSH PRN ×2 (03:06→11:39)
[2022-04-11] MEDS: LEVOTHYROXINE SODIUM 50 MCG TABLET PO SCH (05:32)
[2022-04-11 07:40] LABS: Hematocrit (blood only) 30.6 % (34.1-44.9); Hemoglobin 10.2 g/dl (12.0-16.0); Mean Corpuscular Hemoglobin 30.5 pg (25.0-34.0); Mean Corpuscular Hgb Conc 33.3 g/dL (32.0-36.0); Mean Corpuscular Volume 91.6 fL (80.0-100.0); Mean Platelet Volume 10.3 fL (9.4-12.3); Platelet Count 207 K/uL (130-400); RDW Coefficient of Variation 13.4 % (11.5-14.5); RDW Standard Deviation 44.5 fL (36.4-46.3); Red Blood Count 3.34 M/uL (3.93-5.22); White Blood Count 4.33 K/ul (4.8-10.8)
[2022-04-11 08:05] LABS: BUN Creatinine Ratio 3.6 (10-20); Calcium 9.5 mg/dl (8.5-10.1); Creatinine Clr Calc Pharmacy 69.4 ml/min; Est GFR (African American) 55.7 ml/min; Magnesium 1.9 mg/dl (1.7-2.4); Potassium 3.6 mmol/L (3.5-5.1)
[2022-04-11] MEDS: ENOXAPARIN INJ 120 MG/0.8 ML SYR SQ SCH (08:06)
[2022-04-11] MEDS: HYDROCORTISONE 10 MG TAB PO SCH (08:07)
[2022-04-11] MEDS: METOCLOPRAMIDE HCL 10 MG TABLET PO SCH (08:07)
--- NOTE | 2022-04-11 14:58 | Hospitalist Progress Note ---
Date of Service April 11, 2022 Assessment & Plan (1) Pulmonary embolism: Plan: Acute Pulmonary Embolism Right lower lobe nodule H/O Right breast cancer H/O recent hospitalization --CTA: Segmental and subsegmental pulmonary emboli of the right lower lobe. 2.4 x 2.2 cm biopsied mass within the medial right breast compatible with the patient's known malignancy. Indeterminate 10 mm subpleural solid nodule of the right lower lobe. Hepatosplenomegaly with hepatic steatosis. No bowel obstruction or bowel wall thickening. --Venous Doppler:No DVT within the right or left lower extremity. --ECHO: EF 50 to 55%. Trace tricuspid regurgitation. Right ventricle is normal. Right ventricle systolic pressure is normal. --Discussed with Bia HARDING for Dr.Mark Gonzalez of the [facility] on 04/10/22: Suggests Eliquis for anticoagulation. 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 Normal cortisol levels Continue hydrocortisone Hypothyroidism Normal TSH Continue levothyroxine Chronic anemia Hb at baseline Monitor CKD II Cr at baseline Monitor renal function Hypokalemia Hypomagnesemia secondary Replace electrolytes as needed Past tobacco abuse As per records Morbid obesity BMI 47 Suspected gastroparesis Continue Reglan GI as outpatient Advance diet as tolerated DVT Px: Lovenox SQ Code Status Full code Admission and Anticipated Discharge Date Admission Date: April 09, 2022 Subjective Patient is seen and examined at bedside Nausea resolved, tolerating diet No bleeding issues No new complaints Denies any dyspnea, palpitations, chest pain, abd pain Plan to discharge home today Review of Systems Review of Systems: All systems reviewed & are unremarkable except as noted in Subjective Physical Exam Physical Exam: Physical Exam: Vitals signs as noted above General Appearance:Morbidly Obese, no apparent distress Head: normocephalic, Atraumatic Eyes: normal inspection, EOMI Neck: supple, Trachea midline Respiratory/Chest: Normal breath sounds, +Port, CTA, No accessory muscle use Cardiovascular: S1, S2, No murmur, +Tachycardia Abdomen/GI:Soft, Non tender, Bowel sounds present Extremities/Musculoskeletal:normal inspection, Trace edema Neurologic/Psych:AAOX3, grossly no focal neurological deficits Skin: normal color, warm Results & Data Results & Data ([facility]) Vital Signs (Past 12 Hours) Vital Signs Temp Pulse Pulse Resp BP BP Pulse Ox 04/11/22 12:06 37 C 108 H 18 130/81 98 04/11/22 07:37 37 C 103 H 16 135/83 100 04/11/22 07:23 104 H 04/11/22 03:26 37 C 103 H 18 113/75 98 O2 Del Method 04/11/22 12:06 Room Air 04/11/22 07:37 Room Air 04/11/22 07:23 04/11/22 03:26 Room Air Laboratory Results Short CBC 04/11/22 Range/Units 06:57 WBC 4.33 L (4.8-10.8) K/ul Hgb 10.2 L (12.0-16.0) g/dl Hct 30.6 L (34.1-44.9) % Plt Count 207 (130-400) K/uL BMP 04/11/22 06:57 Sodium 140 Potassium 3.6 Chloride 108 H Carbon Dioxide 21 BUN 5 L Creatinine 1.38 H Glucose 80 Calcium 9.5
--- NOTE | 2022-04-11 15:03 | Discharge Summary ---
Date of Service April 11, 2022 Admission HPI Per Admitting Provider History obtained from patient, family, and records. Medical history significant for right breast cancer status post neoadjuvant chemotherapy/immunotherapy, pituitary insufficiency as per patient, hypothyroidism, chronic anemia (baseline hemoglobin of 11), CRI (baseline creatinine of 2 as per patient), past tobacco abuse. Patient diagnosed to have right breast cancer July 2021. Neoadjuvant chemotherapy/immunotherapy initiated September 2021. Last dose administered December 2021. Surgery contemplated next month. 2 months ago, patient noted nausea symptoms without unusual abdominal pain. Involuntary 20 pound weight loss the last couple of months. Patient prescribed antiemetics by outpatient providers. Patient admitted at [facility] last month for sepsis, renal failure necessitating temporary dialysis. At home, patient still with persistent nausea symptoms without unusual abdominal pain. No bowel movement. No chest pain, no unusual shortness of breath. No unusual leg swelling. Patient brought to the ER by for worsening symptoms. Weight-based Lovenox administered at the ER for pulmonary embolism. Medical History as above Surgical History : section, a port placement, cholecystectomy Family History : Breast cancer Personal/Social history : Past tobacco abuse, occasional EtOH intake, healthcare schedule coordinator Admission Exam Per Admitting Provider Physical Exam Physical Exam: GENERAL: Comfortable, morbidly obese, pleasant, no respiratory distress SKIN: Pallor, warm HEENT: Pale palpebral conjunctivae, no ptosis, dry buccal mucosa NECK : Supple, short neck, no tenderness CHEST : CTA, no tenderness HEART : Tachycardic, no obvious murmurs ABDOMEN: Some distention, nontender EXTREMITIES : Minimal LE swelling, no LE tenderness, no other conspicuous deformities noted NEUROLOGIC : Coherent, no facial asymmetry, no other gross focality Principal Diagnosis Acute Pulmonary Embolism Right lower lobe nodule Discharge Data Allergies Allergy/AdvReac Type Severity Reaction Status Date / Time carboplatin Allergy Severe Difficulty Verified 04/10/22 00:03 Breathing cefaclor [From Ceclor] Allergy Hives Verified 04/10/22 00:03 -Platin Family Allergy Severe Difficulty Uncoded 04/10/22 00:04 Breathing Consultations 04/09/22 20:41 ED Decision to Admit Stat Procedures Performed Laboratory Results WBC 4.33 K/ul (4.8-10.8) L 04/11/22 06:57 RBC 3.34 M/uL (3.93-5.22) L 04/11/22 06:57 Hgb 10.2 g/dl (12.0-16.0) L 04/11/22 06:57 Hct 30.6 % (34.1-44.9) L 04/11/22 06:57 MCV 91.6 fL (80.0-100.0) 04/11/22 06:57 MCH 30.5 pg (25.0-34.0) 04/11/22 06:57 MCHC 33.3 g/dL (32.0-36.0) 04/11/22 06:57 RDW Std Deviation 44.5 fL (36.4-46.3) 04/11/22 06:57 RDW Coeff of Phylicia 13.4 % (11.5-14.5) 04/11/22 06:57 Plt Count 207 K/uL (130-400) 04/11/22 06:57 MPV 10.3 fL (9.4-12.3) 04/11/22 06:57 Immature Gran % (Auto) 0.2 % 04/10/22 05:48 Neut % (Auto) 48.0 % 04/10/22 05:48 Lymph % (Auto) 30.6 % 04/10/22 05:48 Ross % (Auto) 15.1 % 04/10/22 05:48 Eos % (Auto) 4.9 % 04/10/22 05:48 Baso % (Auto) 1.2 % 04/10/22 05:48 Neut # (Auto) 2.35 K/uL (1.4-6.5) 04/10/22 05:48 Lymph # (Auto) 1.50 K/uL (1.2-3.4) 04/10/22 05:48 Ross # (Auto) 0.74 K/uL (0.24-0.82) 04/10/22 05:48 Eos # (Auto) 0.24 K/uL (0-0.50) 04/10/22 05:48 Baso # (Auto) 0.06 K/uL (0-0.2) 04/10/22 05:48 Immature Gran # (Auto) 0.01 K/uL (0.00-0.02) 04/10/22 05:48 APTT 30.6 Seconds (21.0-31.0) 04/09/22 20:53 PTT Ratio 1.1 04/09/22 20:53 Sodium 140 mmol/L (136-145) 04/11/22 06:57 Potassium 3.6 mmol/L (3.5-5.1) 04/11/22 06:57 Chloride 108 mmol/L (98-107) H 04/11/22 06:57 Carbon Dioxide 21 mmol/L (21-32) 04/11/22 06:57 Anion Gap 11 (3-11) 04/11/22 06:57 BUN 5 mg/dl (6-23) L 04/11/22 06:57 Creatinine 1.38 mg/dl (0.6-1.2) H 04/11/22 06:57 Est Cr Clr Drug Dosing 69.4 ml/min 04/11/22 06:57 Est GFR ( Amer) 55.7 ml/min 04/11/22 06:57 Est GFR (Non-Af Amer) 48.0 ml/min 04/11/22 06:57 BUN/Creatinine Ratio 3.6 (10-20) L 04/11/22 06:57 Glucose 80 mg/dl (70-99(Fasting)) 04/11/22 06:57 Estimat Average Glucose 111 mg/dl 04/10/22 05:48 Hemoglobin A1c 5.5 % (4.5-5.6) 04/10/22 05:48 Calcium 9.5 mg/dl (8.5-10.1) 04/11/22 06:57 Magnesium 1.9 mg/dl (1.7-2.4) 04/11/22 06:57 Total Bilirubin 0.8 mg/dl (0.2-1.0) 04/09/22 14:42 AST 103 U/L (13-39) H 04/09/22 14:42 ALT 99 U/L (7-52) H 04/09/22 14:42 Alkaline Phosphatase 65 U/L (34-104) 04/09/22 14:42 Troponin I High Sens 28.5 pg/ml (0-14) H 04/09/22 14:42 Total Protein 7.5 gm/dl (6.0-8.3) 04/09/22 14:42 Albumin 4.2 gm/dl (3.4-5.0) 04/09/22 14:42 Globulin 3.3 gm/dl (2.5-4.0) 04/09/22 14:42 Albumin/Globulin Ratio 1.3 (0.9-2) 04/09/22 14:42 Lipase 38 U/L (11-82) 04/09/22 14:42 TSH 0.435 uIu/ml (0.300-4.500) 04/09/22 14:42 Random Cortisol 27.38 mcg/dl 04/10/22 11:24 SARS-CoV-2, RNA, NAAT NEGATIVE (NEGATIVE) 04/09/22 21:00 Impressions Abdomen/Pelvis CT 04/09/22 18:27 CT angio chest PE protocol, CT abd pelvis IV con only CT DOSE: 2383.16 mGy.cm HISTORY: 41 years-old Female with PE. Acute shortness breath with chest and abdominal pain. History of breast cancer. TECHNIQUE: Multiple CTA images of the chest were obtained after the intravenous administration of 112 ml Optiray. Coronal and sagittal MIPS were obtained from the axial data set and were submitted for review. CT abdomen and pelvis with IV contrast only was also obtained. All measurements were obtained according to NASCET criteria. A dose lowering technique was utilized adhering to the principles of ALARA. COMPARISON: None. FINDINGS: CTA: Left IJ Fzeyei-i-Blrh catheter distal tip terminates in the mid SVC. The heart is upper limits of normal in size. No pericardial effusion. Normal thoracic aorta without aneurysm or dissection. Suboptimal opacification of the pulmonary arterial tree. The lobar, segmental and subsegmental branches are well visualized secondary to contrast bolus timing. Likely acute pulmonary embolus noted within the segmental and subsegmental branches of the posterior basal right lower lobe, image 155. No central pulmonary emboli are identified. No evidence of right heart strain. CT CHEST: Unremarkable thyroid. No lymphadenopathy identified. No pneumothorax, pleural effusion, airspace consolidation or overt pulmonary edema. There is mild nonspecific bilateral bronchial wall thickening. There is a subpleural nodule within the right lower lobe, image 161 measuring 10 mm. The left lung is generally clear. Respiratory motion artifact in its evaluation of the lungs. The central airways are patent. Biopsied 2.4 x 2.2 cm mass within the medial right breast. Soft tissues are otherwise unremarkable. No acute fracture or destruc tive bone lesion identified. CT ABDOMEN/PELVIS: No pneumatosis or pneumoperitoneum. Hepatosplenomegaly with hepatic steatosis. The spleen measures approximately 15 cm in length. Unremarkable pancreas and glands. Cholecystectomy. No hepatic lesions are identified. Patency of the hepatic and portal veins. Probable cyst of the posterior inferior pole left kidney, 1.1 cm. Mild nonspecific bilateral perinephric stranding. Moderate bladder wall thickening with partial distention. Unremarkable uterus and adnexa. Aorta and IVC are unremarkable. No lymphadenopathy identified. Mild nonspecific distal esophageal wall thickening. No bowel obstruction or bowel wall thickening. The visualized appendix is unremarkable. Tiny fat filled periumbilical hernia. No acute fracture or destructive bone lesion identified. IMPRESSION: 1. Segmental and subsegmental pulmonary emboli of the right lower lobe. 2. 2.4 x 2.2 cm biopsied mass within the medial right breast compatible with the patient's known malignancy. 3. Indeterminate 10 mm subpleural solid nodule of the right lower lobe. Follow- up is needed. 4. Hepatosplenomegaly with hepatic steatosis. 5. No bowel obstruction or bowel wall thickening. 6. Additional findings as above. ACT 112: Negative or not required by law. The above report was generated using voice recognition software. It may contain grammatical, syntax or spelling errors. Electronically signed by: Trevor Silva M.D. 04/09/2022 8:09 PM Chest CTA 04/09/22 18:27 CT angio chest PE protocol, CT abd pelvis IV con only CT DOSE: 2383.16 mGy.cm HISTORY: 41 years-old Female with PE. Acute shortness breath with chest and abdominal pain. History of breast cancer. TECHNIQUE: Multiple CTA images of the chest were obtained after the intravenous administration of 112 ml Optiray. Coronal and sagittal MIPS were obtained from the axial data set and were submitted for review. CT abdomen and pelvis with IV contrast only was also obtained. All measurements were obtained according to NASCET criteria. A dose lowering technique was utilized adhering to the principles of ALARA. COMPARISON: None. FINDINGS: CTA: Left IJ Kvnhfr-d-Zwbx catheter distal tip terminates in the mid SVC. The heart is upper limits of normal in size. No pericardial effusion. Normal thoracic aorta without aneurysm or dissection. Suboptimal opacification of the pulmonary arterial tree. The lobar, segmental and subsegmental branches are well visualized secondary to contrast bolus timing. Likely acute pulmonary embolus noted within the segmental and subsegmental branches of the posterior basal right lower lobe, image 155. No central pulmonary emboli are identified. No evidence of right heart strain. CT CHEST: Unremarkable thyroid. No lymphadenopathy identified. No pneumothorax, pleural effusion, airspace consolidation or overt pulmonary edema. There is mild nonspecific bilateral bronchial wall thickening. There is a subpleural nodule within the right lower lobe, image 161 measuring 10 mm. The left lung is generally clear. Respiratory motion artifact in its evaluation of the lungs. The central airways are patent. Biopsied 2.4 x 2.2 cm mass within the medial right breast. Soft tissues are otherwise unremarkable. No acute fracture or destructive bone lesion identified. CT ABDOMEN/PELVIS: No pneumatosis or pneumoperitoneum. Hepatosplenomegaly with hepatic steatosis. The spleen measures approximately 15 cm in length. Unremarkable pancreas and glands. Cholecystectomy. No hepatic lesions are identified. Patency of the hepatic and portal veins. Probable cyst of the posterior inferior pole left kidney, 1.1 cm. Mild nonspecific bilateral perinephric stranding. Moderate bladder wall thickening with partial distention. Unremarkable uterus and adnexa. Aorta and IVC are unremarkable. No lymphadenopathy identified. Mild nonspecific distal esophageal wall thickening. No bowel obstruction or bowel wall thickening. The visualized appendix is unremarkable. Tiny fat filled periumbilical hernia. No acute fracture or destructive bone lesion identified. IMPRESSION: 1. Segmental and subsegmental pulmonary emboli of the right lower lobe. 2. 2.4 x 2.2 cm biopsied mass within the medial right breast compatible with the patient's known malignancy. 3. Indeterminate 10 mm subpleural solid nodule of the right lower lobe. Follow- up is needed. 4. Hepatosplenomegaly with hepatic steatosis. 5. No bowel obstruction or bowel wall thickening. 6. Additional findings as above. ACT 112: Negative or not required by law. The above report was generated using voice recognition software. It may contain grammatical, syntax or spelling errors. Electronically signed by: Trevor Silva M.D. 04/09/2022 8:09 PM Venous Doppler Study 04/09/22 21:47 BILATERAL LOWER EXTREMITY VENOUS DOPPLER HISTORY: History of malignancy. Pulmonary emboli. Assess for DVT. COMPARISON STUDY: None. FINDINGS: There is normal compressibility, flow, and augmentation within the bilateral lower extremity deep venous systems. IMPRESSION: No DVT within the right or left lower extremity. ACT 112: Negative or not required by law. Electronically signed by: Erik Yost M.D. 04/10/2022 7:18 AM Ordered Studies 04/09/22 18:27 CT abd pelvis IV con only Stat CT angio chest PE protocol Stat 04/09/22 21:47 US venous doppler LE BI Routine Hospital Course (1) Pulmonary embolism: Acute Pulmonary Embolism Right lower lobe nodule H/O Right breast cancer H/O recent hospitalization --CTA: Segmental and subsegmental pulmonary emboli of the right lower lobe. 2.4 x 2.2 cm biopsied mass within the medial right breast compatible with the patient's known malignancy. Indeterminate 10 mm subpleural solid nodule of the right lower lobe. Hepatosplenomegaly with hepatic steatosis. No bowel obstruction or bowel wall thickening. --Venous Doppler:No DVT within the right or left lower extremity. --ECHO: EF 50 to 55%. Trace tricuspid regurgitation. Right ventricle is normal. Right ventricle systolic pressure is normal. --Discussed with Bia HARDING for Dr.Mark Gonzalez of the [facility] on 04/10/22: Suggests Eliquis for anticoagulation. 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 Normal cortisol levels Continue hydrocortisone Hypothyroidism Normal TSH Continue levothyroxine Chronic anemia Hb at baseline Monitor CKD II Cr at baseline Monitor renal function Hypokalemia Hypomagnesemia secondary Replace electrolytes as needed Past tobacco abuse As per records Morbid obesity BMI 47 Suspected gastroparesis Continue Reglan GI as outpatient Advance diet as tolerated DVT Px: Lovenox SQ Code Status Full code Total Time Total Time Spent Total Time Spent (In Minutes): 48 minutes Discharge Plan Discharge Items Patient Disposition: Home - Self-Care Reason For Visit: PE Discharge Diagnosis: Acute Pulmonary Embolism Right lower lobe nodule Activity: Per Instructions section Exercise/Sports: Gradually increase as tolerated Non-emergency contact: Primary Care Provider and Oncologist Call non-emergency contact if: you have any medication questions, your symptoms worsen, your pain is concerning for you and you have a fever Follow-up/Referrals: Santarelli,Rodríguez M., DO [Primary Care Provider] - Diet: Heart Healthy Addtl Attending Provider Instructions: Follow-up with your primary care physician Dr. Hubbard in 1 week Follow-up with your oncologist as advised. --- Start taking apixaban 10 mg twice a day for 1 week and then take 5 mg twice a day. Duration of anticoagulation with apixaban to be determined by your primary care physician/oncologist. --- You are incidentally found to have right lower lobe lung nodule. Follow-up with your oncologist for further evaluation and management. Seek immediate medical attention if your symptoms reoccur or worsen Please take all medications as instructed on discharge list below. Please call if you have any questions or problems. You can reach a [facility] hospitalist on duty at [facility] 24 hours a day by calling [phone] Pending Studies at Discharge: No Stand-Alone Forms: My [facility] [employer], Smoking Cessation Medications and DC Order Prescriptions: New Eliquis 5 mg tablet 5 mg PO UD Qty: 74 1RF Rx Instructions: Start taking Apixaban 10 mg twice a day for 1 week and then take 5mg twice a day. Continued ondansetron HCl 8 mg tablet 8 mg PO BIDWMEAL ondansetron HCl 4 mg tablet tramadol 50 mg tablet 50 mg PO Q4H PRN (Reason: Pain) levothyroxine 25 mcg tablet 50 mcg PO DAILY hydrocortisone 10 mg tablet 10 mg PO UD Rx Instructions: 2 tabs in AM, 1 tab at 4PM metoclopramide HCl 10 mg tablet 10 mg PO TIDWMEAL Discharge Orders: Discharge Order (Routine); Ordered 04/11/22 Ordered By: Gallo Covarrubias Admission Data Admit Date/Time: 04/09/22 21:45 Attending Provider: Gallo Covarrubias Admit Provider: Jaya Márquez Primary Care Provider: Rodríguez Hubbard Other Providers: Jaya Márquez
[2022-04-11] MEDS ORDERED: APIXABAN 5 MG TABLET PO SCH (21:00)
== END 2022-04-11 16:01 | disposition home or self-care (01) | DRG 176 ==
LOC: ED 12:14 → 2N 21:45